=== PATIENT | female | born 1990 | race Caucasian/White ===

== ENCOUNTER 2021-03-09 12:01 | Emergency (ER) | payer OTHER ==
[~2021-03-09] VITALS: Ht 154.9 cm; Wt 73.7 kg
--- NOTE | 2021-03-09 12:27 | PHYS DOC ---
Past History Past Medical History: Hypothyroid General Adult HPI: HPI: Patient is a 30 year old female with history of hypothyroidism who presents with chest pain and shortness of breath in the setting of Covid. Began having cough, fever, chills, diarrhea, nausea/vomiting 1 week ago (March 02). Tested positive for Covid on Thursday, March 04. Symptoms have only progressed throughout the course of the week. Over the past couple of days has had chest pressure and shortness of breath with any exertion. Chest pressure is worse with deep inspiration. She is not on OCPs. She does not have any symptoms of lower extremity edema, redness, or pain. No history of blood clots. Only medication is levothyroxine. She has had temps as high as 101.7 degrees Fahrenheit. Review of Systems: Review of Systems: Constitutional: Positive fever and chills Eyes: Denies change in visual acuity HENT: Reports nasal congestion Respiratory: Reports cough and shortness of breath Cardiovascular: Reports chest pain. No edema GI: Reports nausea/vomiting, diarrhea. Denies abdominal pain. : Denies dysuria Musculoskeletal: Denies back pain or joint pain Integument: Denies rash Neurologic: Denies headache, focal weakness or sensory changes Endocrine: Denies polyuria or polydipsia Lymphatic: Denies swollen glands Psychiatric: Denies depression or anxiety Physical Exam: PE: Constitutional: Well developed, well nourished, no acute distress, non-toxic appearance. [] HENT: Normocephalic, atraumatic, bilateral external ears normal, oropharynx moist, no oral exudates, nose normal. [] Eyes: PERRLA, EOMI, conjunctiva normal, no discharge. [] Neck: Normal range of motion, no tenderness, supple, no stridor. [] Cardiovascular: Mild tachycardia. Regular rhythm, no murmur [] Lungs & Thorax: Anteriorly bilateral breath sounds clear to auscultation [] Abdomen: Bowel sounds normal, soft, no tenderness, no masses, no pulsatile masses. [] Skin: Warm, dry, no erythema, no rash. [] Back: No tenderness, no CVA tenderness. [] Extremities: No tenderness, no cyanosis, no clubbing, ROM intact, no edema. [] Neurologic: Alert and oriented X 3, normal motor function, normal sensory function, no focal deficits noted. [] Psychologic: Affect normal, judgement normal, mood normal. [] EKG: EKG: Sinus rhythm. Rate 98. Normal axis. Normal intervals. Baseline wander. ST depression and T wave inversions anteriorly. Flat T waves laterally. [] Radiology/Procedures: Radiology/Procedures: [] Impressions: [address], [place], [place] [id number] IMAGING REPORT Signed PATIENT: OLGA ESTRADA ACCOUNT: [id number] : 1990 LOCATION: ER AGE: 30 SEX: F EXAM STATUS: REG ER ORD. PHYSICIAN: QUINN GEORGE MD REASON: sob, covid + PROCEDURE: CHEST AP ONLY XR CHEST 1V History: Short of breath, Covid. Comparison: None. Technique: Portable AP radiograph of the chest. Findings: The lungs are adequately inflated. There are subtle patchy lower lobe opacities bilaterally. No pleural effusion or pneumothorax. Cardiomediastinal silhouette and pulmonary vasculature are within normal limits. Osseous structures and soft tissues are unremarkable. Impression: 1. Subtle bilateral lower lobe patchy opacities likely represent Covid pneumonia. Electronically signed by: Chapincito Liu MD (03/09/2021 1:12 PM) [id number] DICTATED AND SIGNED BY: CHAPINCITO LIU MD DATE: 03/09/21 1312 CC: QUINN GEORGE MD; SUE GRANADOS PA-C ~MTH0 0 Heart Score: C/O Chest Pain: Yes HEART Score for Chest Pain: HEART Score for Chest Pain Response (Comments) Value History Moderately Suspicious 1 ECG Nonspecific Repolarizatio 1 Age < 45 0 Risk Factors No Risk Factors 0 Total 2 Risk Factors: Risk Factors: DM, Current or recent (<one month) smoker, HTN, HLP, family history of CAD, obesity. Risk Scores: Score 0 - 3: 2.5% MACE over next 6 weeks - Discharge Home Score 4 - 6: 20.3% MACE over next 6 weeks - Admit for Clinical Observation Score 7 - 10: 72.7% MACE over next 6 weeks - Early Invasive Strategies Course & Med Decision Making: Course & Med Decision Making Pertinent Labs and Imaging studies reviewed. (See chart for details) Patient a 30-year-old female is recently tested positive for Covid who presents with new symptoms of exertional and pleuritic shortness of breath and chest pain. On arrival is afebrile. Slightly tachycardic in the [id number], O2 sats 96. EKG shows ST depression and T wave inversions anteriorly. Concern for potential myocarditis and PE. Troponin and dimer sent to further evaluate. We will obtain chest x-ray to evaluate for signs of COVID-19 pneumonia. She appears slightly dehydrated, 1 L of IV fluids ordered. 1227 Dimer negative. No further work up for PE. Troponin negative, and given duration of symptoms is sufficient to r/o myocardial injury. CXR shows subtle pneumonia c/w covid. Slight hypokalemia 3.0 will replete here and advise close f/u. VS/oxygenation have remained stable. Feel she is safe for discharge. 1333 Dragon Disclaimer: Dragon Disclaimer: This electronic medical record was generated, in whole or in part, using a voice recognition dictation system. Departure Departure: Impression: Primary Impression: Pneumonia due to COVID-19 virus Disposition: HOME / SELF CARE / HOMELESS Condition: STABLE Referrals: SUE GRANADOS PA-C (PCP) Additional Instructions: Your work-up today was reassuring. There was no signs of pulmonary embolism on your blood work. There is no signs of heart strain on your blood work either. Your chest x-ray showed some small changes that may be early onset of pneumonia, but your vital signs and oxygenation were okay. If you develop worsening shortness of breath please return to the emergency department for reevaluation. Otherwise please follow-up with your primary care doctor to ensure that your symptoms are improving over the next week. Scripts Ondansetron Hcl (ZOFRAN) 4 Mg Tablet 1 TAB PO Q6HRS for nausea, #20 TAB Prov: QUINN GEORGE MD 03/09/21 QUINN GEORGE MD Mar 09, 2021 12:27
[2021-03-09 12:28] VITALS: BP 139/85
[2021-03-09] MEDS ORDERED: IV NORMAL SALINE 1,000ML 1,000 ML IV ONE (12:30)
[2021-03-09 13:04] LABS: BASO % 1 % (0-3); EOS % 0 % (0-3); HEMATOCRIT 41.6 % (36.0-47.0); HEMOGLOBIN 14.6 g/dL (12.0-15.5); LYMPH # 1.2 x10^3/uL (1.0-4.8); LYMPH % 20 % (24-48); MEAN CORPUSCULAR HEMOGLOBIN 31 pg (25-35); MEAN CORPUSCULAR HGB CONC 35 g/dL (31-37); MEAN CORPUSCULAR VOLUME 88 fL (79-100); MONO # 0.3 x10^3/uL (0.0-1.1); MONO % 5 % (0-9); NEUT # 4.6 x10^3uL (1.8-7.7); NEUT % 75 % (31-73); PLATELET COUNT 189 x10^3/uL (140-400); RED BLOOD COUNT 4.72 x10^6/uL (3.50-5.40); RED CELL DISTRIBUTION WIDTH 12.6 % (11.5-14.5); WHITE BLOOD COUNT 6.1 x10^3/uL (4.0-11.0)
--- NOTE | 2021-03-09 13:15 | RAD ---
XR CHEST 1V History: Short of breath, Covid. Comparison: None. Technique: Portable AP radiograph of the chest. Findings: The lungs are adequately inflated. There are subtle patchy lower lobe opacities bilaterally. No pleur al effusion or pneumothorax. Cardiomediastinal silhouette and pulmonary vasculature are within normal limits. Osseous structures and soft tissues are unremarkable. Impression: 1. Subtle bilateral lower lobe patchy opacities likely represent Covid pneumonia. Electronically signed by: Chapincito Garcia MD (03/09/2021 1:12 PM) [id number]
[2021-03-09 13:16] LABS: ALBUMIN/GLOBULIN RATIO 1.1 (1.0-1.7); CALCIUM 8.6 mg/dL (8.5-10.1); CREATININE 0.7 mg/dL (0.6-1.0); GFR 97.6; TOTAL BILIRUBIN 0.4 mg/dL (0.2-1.0); TOTAL PROTEIN 7.8 g/dL (6.4-8.2)
[2021-03-09] MEDS ORDERED: ONDA4TAB7 PO (13:40)
--- NOTE | 2021-03-09 15:42 | EKG ---
[address] [address] Test Date: 2021-03-09 Test Time: 12:11:30 Pat Name: OLGA ESTRADA Department: Room: Gender: F Sales Technician: MARYAM : 1990 Requested By: QUINN GEORGE Order Number: [id number] Reading MD: Measurements Intervals [place] Rate: 98 P: 52 VT: 112 QRS: 39 QRSD: 70 T: -4 QT: 382 QTc: 490 Interpretive Statements SINUS RHYTHM ST & T ABNORMALITY, CONSIDER INFERIOR ISCHEMIA OR LEFT VENTRICULAR STRAIN ABNORMAL ECG RI6.02 No previous ECG available for comparison
== END 2021-03-09 13:51 | disposition home or self-care (01) ==
LOC: ER 12:01
DX: U07.1 COVID-19 (principal); J12.82 Pneumonia due to coronavirus disease 2019
CPT/HCPCS: 36415; 71045; 80053; 81025; 84484; 85025; 85379; 93005; 96360; 99285; J7030